=== PATIENT | male | born 1970 | race Caucasian/White ===

== ENCOUNTER 2020-08-20 09:29 | Emergency (ER) | payer OTHER ==
[~2020-08-20] VITALS: Ht 165.1 cm; Wt 83.9 kg
[2020-08-20] MEDS ORDERED: PENVK500 PO (10:36)
[2020-08-20] MEDS ORDERED: IBUP800 PO (10:36)
== END 2020-08-20 10:48 | disposition home or self-care (01) ==
LOC: ER 09:29
DX: K08.89 Other specified disorders of teeth and supporting structures (principal); I10 Essential (primary) hypertension
CPT/HCPCS: 99282; A9270